=== PATIENT | male | born 1965 | race Caucasian/White ===

== ENCOUNTER → 2018-11-01 | Outpatient (CLI) | payer BC ==
[2018-11-01 14:42] LABS: Blood Urea Nitrogen 16 mg/dL (9-20)
--- NOTE | 2018-11-01 17:00 | CT ---
EXAMINATION TYPE: CT abdomen pelvis w con DATE OF EXAM: 11/01/2018 COMPARISON: None. HISTORY: Abdominal pain and constipation CT DLP: 2177 mGycm, Automated Exposure Control for Dose Reduction was Utilized. CONTRAST: CT scan of the abdomen and pelvis is performed with oral and with IV Contrast, patient injected with 100 mL of Isovue 300. FINDINGS: LUNG BASES: Trace pericardial effusion is seen anteriorly inferiorly axial image 7. LIVER/GB: Liver is diffusely low-density consistent with fatty infiltration. PANCREAS: No significant abnormality is seen. SPLEEN: No significant abnormality is seen. ADRENALS: There is 3.3 x 3.2 cm nonspecific left adrenal masses Hounsfield units average 21 [address] ast images. KIDNEYS: Symmetric cortical medullary uptake and excretion from both kidneys without hydronephrosis i s seen bilaterally. Urinary bladder appears mildly distended extending to the lower abdomen. BOWEL: Oral contrast only reaches level of mid ileal loops in the right lower quadrant. No suspicious small or large bowel dilatation is present. Normal-appearing appendix is seen inferiorly from the ce cum. PROSTATE/SEMINAL VESICLES: Prostate gland is upper limits of normal in size. LYMPH NODES: No greater than 1cm abdominal or pelvic lymph nodes are appreciated. OSSEOUS STRUCTURES: Severe disc space narrowing lumbosacral junction with moderate spurring is presen t. Moderate axial joint space loss both hips is seen with mild acetabular spurring. OTHER: There is overlying vertical scar near umbilicus with perhaps small focal fluid axial image 62 could reflect residual seroma. IMPRESSION: 1. No bowel obstruction. No significant acute finding is seen to account for patient's clinical symp toms of pain and constipation. 2. Nonspecific 3.3 cm left adrenal mass. Malignant etiology not excluded. Follow-up adrenal protocol CT/MRI advised to further evaluate.
== END ==
LOC: RADCTMAIN 14:06
PROVIDERS: ATTEND Internal Medicine
DX: E27.9 Disorder of adrenal gland, unspecified (principal)
CPT/HCPCS: 82565; 84520; 74177; 36415; Q9967

== ENCOUNTER → 2018-11-27 | Outpatient (CLI) | payer BC | END | disposition home or self-care (01) | LOC: RADMRIMAIN 07:08 | PROVIDERS: ATTEND Internal Medicine | DX: Z53.8 Procedure and treatment not carried out for other reasons (principal) ==